=== PATIENT | female | born 1945 | race Caucasian/White ===

== ENCOUNTER → 2017-05-19 | Outpatient (CLI) | payer MEDICARE ==
[~2017-05-19] MED LIST: ASP81CT PO; ATRV10T PO; CALC-80; CHOL200014 PO; E400C; GBPN100C PO; LINA5TAB PO; LIRA0.6P3 SQ; LISI5TAB PO; MULT-608; NAPR250T34 PO; OMG1KC PO; PNT40TEC PO; PRX10T PO
--- NOTE | 2017-05-21 14:11 | Diagnostic Imaging Report ---
EXAMINATION: Bilateral screening mammogram 2D views with tomosynthesis. The current study was also evaluated with a Computer Aided Detection (CAD) system. INDICATION: Screening. PERSONAL HISTORY: No current complaints stated on the questionnaire. COMPARISON: 05/30/2015. FINDINGS: The breasts are composed of scattered fibroglandular densities. There are occasional benign appearing calcifications. Allowing for technique and positional differences, no suspicious change is seen. IMPRESSION: No significant change. ACR BI-RADS Category 2: Benign findings. Result letter will be mailed to the patient. Note: At least 10% of breast cancer is not imaged by mammography. Dictated by: Dictated on workstation # [id number]
== END ==
LOC: RAD 13:59
PROVIDERS: ATTEND Family Medicine
DX: Z12.31 Encounter for screening mammogram for malignant neoplasm of breast (principal)
CPT/HCPCS: 77067

== ENCOUNTER → 2018-05-25 | Outpatient (CLI) | payer MEDICARE ==
[~2018-05-25] MED LIST changes: -CHOL200014 PO; +CHOL200085 PO
--- NOTE | 2018-05-26 10:08 | Diagnostic Imaging Report ---
INDICATION: Routine screening. Comparison is made prior mammogram from 05/19/2017 and 05/30/2015. 2-D and 3-D bilateral screening mammography was performed with a Computer Aided Detection (CAD) system. FINDINGS: Scattered fibroglandular densities are identified bilaterally. The parenchymal pattern is stable. No mass or malignant appearing microcalcifications are seen. Axillae are unremarkable. IMPRESSION: No mammographic features suspicious for malignancy are identified. ACR BI-RADS Category 1: Negative. Result letter will be mailed to the patient. Note: At least 10% of breast cancer is not imaged by mammography. Dictated by: Dictated on workstation # [id number]
== END ==
LOC: RAD 14:14
PROVIDERS: ATTEND Nurse Practitioner Family
DX: Z12.31 Encounter for screening mammogram for malignant neoplasm of breast (principal)
CPT/HCPCS: 77067

== ENCOUNTER 2018-06-03 08:55 | Outpatient (RCR) | payer MEDICARE ==
[2018-05-29] MEDS: diphenhydrAMINE 50 MG/ML INJ (BENADRYL) IV SCH (14:39)
[2018-05-29] MEDS: ACETAMINOPHEN 325 MG TABLET PO SCH (14:39)
[2018-05-29 15:45] VITALS: BP 126/75
[2018-06-01 08:10] VITALS: BP 115/72
[2018-06-01] MEDS: diphenhydrAMINE 50 MG/ML INJ (BENADRYL) IV SCH (08:13)
[2018-06-01] MEDS: ACETAMINOPHEN 325 MG TABLET PO SCH (08:13)
[2018-06-01] MEDS: IRON SUCROSE 200 MG/10 ML (VENOFER) VIAL IV SCH (08:13)
[~2018-06-03] VITALS: Ht 160 cm; Wt 76.7 kg
[2018-06-03 08:55] VITALS: BP 128/73
[~2018-06-03 08:55] MED LIST changes: +IRON SUCROSE 200 MG/10 ML (VENOFER) VIAL IV NR; +IRON SUCROSE 200 MG/10 ML (VENOFER) VIAL IV SCH
[2018-06-03] MEDS: ACETAMINOPHEN 325 MG TABLET PO SCH (09:05)
[2018-06-03] MEDS: diphenhydrAMINE 50 MG/ML INJ (BENADRYL) IV SCH (09:08)
[2018-06-03] MEDS: IRON SUCROSE 200 MG/10 ML (VENOFER) VIAL IV SCH (09:27)
== END 2018-06-07 | disposition home or self-care (01) ==
LOC: SDC 08:55
PROVIDERS: ATTEND Family Medicine
DX: D50.9 Iron deficiency anemia, unspecified (principal)
CPT/HCPCS: 96365; 96374

== ENCOUNTER → 2019-05-31 | Outpatient (CLI) | payer MEDICARE ==
[~2019-05-31] MED LIST changes: +CHOL200014 PO; -CHOL200085 PO; -IRON SUCROSE 200 MG/10 ML (VENOFER) VIAL IV NR; -IRON SUCROSE 200 MG/10 ML (VENOFER) VIAL IV SCH
--- NOTE | 2019-05-31 12:39 | Diagnostic Imaging Report ---
INDICATION: Routine screening. Comparison is made with prior mammograms from 05/25/2018 and 05/19/2017. 2-D and 3-D bilateral screening mammography was performed. The current study was also evaluated with a Computer Aided Detection (CAD) system. 3-D tomosynthesis was also performed and reviewed. FINDINGS: Scattered fibroglandular densities are identified bilaterally. The parenchymal pattern is stable. No mass or malignant-appearing microcalcifications are seen. Axillae are unremarkable. IMPRESSION: No mammographic features suspicious for malignancy are identified. ACR BI-RADS Category 1: Negative. Result letter will be mailed to the patient. Note: At least 10% of breast cancer is not imaged by mammography. Dictated by: Dictated on workstation # [id number]
== END ==
LOC: RAD 09:38
PROVIDERS: ATTEND Nurse Practitioner Family
DX: Z12.31 Encounter for screening mammogram for malignant neoplasm of breast (principal)
CPT/HCPCS: 77067

== ENCOUNTER 2019-10-30 21:53 | Emergency (ER) | payer MEDICARE ==
[~2019-10-30] VITALS: Ht 163 cm; Wt 81.0 kg
--- NOTE | 2019-10-30 22:29 | ED Cough/URI ---
General Chief Complaint: Cough/Cold/Flu Symptoms Stated Complaint: SORE THROAT, CONGESTION, HEADACHE Nursing Triage Note: SORE THROAT X6 DAYS, RIGHT EYE REDNESS Sepsis Screen: No Definite Risk Source: patient Exam Limitations: no limitations History of Present Illness Date Seen by Provider: Oct 30, 2019 Time Seen by Provider: 22:10 Initial Comments The patient presents to ER by private conveyance from home with chief complaint that she has had some upper respiratory sinus congestion, sinus pressure and facial pain especially over her temporomandibular joints bilaterally for the past 6 days. She's also had a little subconjunctival hemorrhage on her right eye which is not infrequent. She has no history of trauma. No purulent discharge or fever. No chills body aches or cough. No history of lung disease. She does have some kidney disease and follows with Dr. Bertrand routinely. She had a recent checkup a few weeks prior to her bus trip last week when she got sick and at the primary care appointment everything seemed to be okay. She's had minor mattering in the morning when she wakes up from her right eye only but it does not cause any trouble throughout the day. She's had a sore throat and use Coricidin and Tylenol. Allergies and Home Medications Allergies Coded Allergies: No Known Drug Allergies (Unverified , 08/22/10) Home Medications Amoxicillin/Potassium Clav 1 Each Tablet, 1 EACH PO BID Prescribed by: YOLANDA TORREZ on 10/30/19 922 Aspirin 81 Mg Chew, 81 MG PO DAILY, (Reported) Atorvastatin Calcium 10 Mg Tablet, 10 MG PO DAILY, (Reported) Cholecalciferol (Vitamin D3) 2,000 Unit Tablet, 2,000 UNIT PO DAILY, (Reported) Liraglutide 0.6 Mg/0.1 Ml Pen.injctr, 0.6 MG SQ DAILY, (Reported) Paroxetine Hcl 10 Mg Tab, 10 MG PO DAILY, (Reported) Patient Home Medication List Home Medication List Reviewed: Yes Review of Systems Review of Systems Constitutional: No chills, No diaphoresis, No fever, No malaise, No weakness EENTM: see HPI, nose congestion, throat pain; No ear discharge, No hearing loss, No ear pain, No eye pain, No hoarseness, No nose pain Respiratory: No cough, No phlegm Cardiovascular: No chest pain, No palpitations Gastrointestinal: No abdominal pain, No nausea Genitourinary: No discharge, No dysuria Musculoskeletal: No back pain, No gout, No joint pain Skin: No pruritus, No rash Psychiatric/Neurological: Denies Headache, Denies Numbness, Denies Paresthesia Past Mbdklgw-Xfigpi-Smlfbs Hx Patient Social History Alcohol Use: Denies Use Recreational Drug Use: No Smoking Status: Never a Smoker 2nd Hand Smoke Exposure: No Recent Foreign Travel: No Contact w/Someone Who Travel: No Recent Infectious Disease Expo: No Recent Hopitalizations: No Physical Abuse: No Sexual Abuse: No Mistreated: No Fear: No Immunizations Up To Date Tetanus Booster (TDap): Unknown Date of Influenza Vaccine: Jun 09, 2012 Seasonal Allergies Seasonal Allergies: No Past Medical History Surgeries: Yes (OVARY REMOVED) Appendectomy, Gallbladder Respiratory: No Cardiac: Yes High Cholesterol, Hypertension 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 0.0oz. 76.003040ag; 30.00 BMI Method: General Appearance: WD/WN, no apparent distress Eyes: Bilateral Eye Normal Inspection, Bilateral Eye PERRL, Bilateral Eye EOMI HEENT: PERRL/EOMI, TMs normal, pharyngeal erythema (minor injection bilaterally without lesion, pustule etc.); No tonsillar exudate; other (frontal sinuses mildly tender to palpation but not the maxillary sinus.) Neck: full range of motion, supple, normal inspection Respiratory: lungs clear, normal breath sounds, no respiratory distress, no accessory muscle use Cardiovascular: normal peripheral pulses, regular rate, rhythm Extremities: normal inspection, normal capillary refill Neurologic/Psychiatric: alert, normal mood/affect Skin: normal color, warm/dry Progress/Results/Core Measures Suspected Sepsis Recent Fever Within 48 Hours: No Infection Criteria Present: None New/Unexplained Altered Menta: No Sepsis Screen: No Definite Risk SIRS Temperature: Pulse: 63 Respiratory Rate: 18 Blood Pressure 161 /71 Mean: 101 Results/Orders Lab Results Laboratory Tests Test 10/30/19 22:06 Range/Units Group A Streptococcus Screen NEGATIVE NEGATIVE Micro Results Microbiology 10/30/19 Influenza Types A,B Antigen (IRAM) - Final, Complete My Orders Orders - YOLANDA TORREZ Rapid Strep A Screen (10/30/19 21:55) Influenza A And B Antigens (10/30/19 21:55) Vital Signs/I&O 10/30/19 22:02 Temp 36.9 Pulse 63 Resp 18 B/P (MAP) 161/71 (101) Pulse Ox 99 O2 Delivery Room Air Capillary Refill : Less Than 3 Seconds Blood Pressure Mean: 101 Progress Note : Time: 22:27 Progress Note Frontal sinus pain, viral looking conjunctivae to so the right eye, sore throat. We'll get a flu swab and rapid strep. Would consider putting her on an antibioti c for a sinus infection since she's having facial pain, history of diabetes and it has been going on for a week. There is no purulent discharge or fever. Otherwise her vital signs are aseptic and appearance is benign. Viral is more likely the source of her symptoms. Departure Impression Primary Impression: Sinusitis, acute frontal Qualified Codes: J01.10 - Acute frontal sinusitis, unspecified Additional Impressions: Viral conjunctivitis, right eye Conjunctival hemorrhage of right eye Disposition: 01 HOME, SELF-CARE Condition: Stable Departure-Patient Inst. Decision time for Depature: 23:18 Referrals: OLEG BERTRAND MD (PCP/Family) Primary Care Physician Patient Instructions: Sinusitis, Adult (DC) Add. Discharge Instructions: Drink lots of fluids. Warm compresses for your eye mattering for pain. Claritin or Zyrtec 10 mg daily if you're having itching around the eyes. Augmentin 1 tablet twice a day with food for the next 10 days for sinus infection. All discharge instructions reviewed with patient and/or family. Voiced understanding. Scripts Amoxicillin/Potassium Clav (Augmentin 875-125 Tablet) 1 Each Tablet 1 EACH PO BID for 10 Days, #20 TAB 0 Refills Prov: YOLANDA TORREZ 10/30/19 YOLANDA TORREZ Oct 30, 2019 22:28
[2019-10-30] MEDS ORDERED: AMOX-358 PO ×2 (22:31→23:24)
[2019-10-30 23:22] VITALS: BP 161/71
== END 2019-10-30 23:21 | disposition home or self-care (01) ==
LOC: EDUNIT# 21:53 → ER 21:55
DX: J01.10 Acute frontal sinusitis, unspecified (principal); B30.9 Viral conjunctivitis, unspecified; H11.31 Conjunctival hemorrhage, right eye; I10 Essential (primary) hypertension; E11.9 Type 2 diabetes mellitus without complications; E78.00 Pure hypercholesterolemia, unspecified; Z79.82 Long term (current) use of aspirin
CPT/HCPCS: 87430; 87804

== ENCOUNTER → 2019-11-09 | Outpatient (CLI) | payer MEDICARE ==
[~2019-11-09] MED LIST changes: +AMOX-358 PO
--- NOTE | 2019-11-09 14:59 | Diagnostic Imaging Report ---
INDICATION: Screening for osteoporosis. COMPARISON: FINDINGS: The bone mineral density of the hips and spine was measured. The study was compared to the prior exam of 08/15/2011. The T score for the spine is -1.3. On the prior exam the T score is -1.6. The total T score for the left hip is -1.4 and for the right hip -1.7. On the prior exam the T-scores were -0.7 and -1.1. The T score for the left femoral neck is -2.1 and for the right femoral neck -2.2. On the prior exam the respective T-scores were -1.7 and -1.6. AP Spine L1-L4: [BMD (g/cm2): 1.041] [T-Score: -1.3] [Z-Score: 0.0] [BMD Previous: 1.006] [BMD % Change: 3.5] LT Hip Neck: [BMD (g/cm2): 0.741] [T-Score: -2.1] [Z-Score: -0.6] LT Hip Total: [BMD (g/cm2):0.837] [T-Score:-1.4] [Z-Score: -0.1] [BMD Previous: 0.918] [BMD % Change: -8.8] RT Hip Neck: [BMD (g/cm2):0.733] [T-Score:-2.2] [Z-Score:-0.7] RT Hip Total: [BMD (g/cm2):0.800] [T-score:-1.7] [Z-Score:-0.4] [BMD Previous:0.868] [BMD % Change:-7.8] *Indicates significant change from prior examination based on 95% confidence level. World Health Organization criteria for BMD interpretation classify patients as Normal (T-score at or above -1.0), Osteopenic (T-score between -1.0 and -2.5) or Osteoporotic (T-score at or below -2.5). LIMITATIONS AND MODIFICATION: None. FRACTURE RISK (FRAX SCORE): The ten year probability of (%): Major Osteoporotic Fracture: [20.6] Hip Fracture: [4.8] IMPRESSION: 1. There has been a slight increase in the bone mineral density of the spine. The T score value remains within the range of osteopenia. 2. Conversely, the bone mineral density of the hips and femoral necks has decreased since the prior exam. All the T scores now indicate osteopenia. 3. See below National Osteoporosis Foundation guidelines on when to potentially initiate pharmacologic therapy. Based on the National Osteoporosis Foundation Guidelines, pharmacologic treatment should be initiated in any of the following, unless clinical conditions suggest otherwise: * Any patient with prior fragility fracture of the hip or vertebrae. A spine fracture indicates 5X risk for subsequent spine fracture and 2X risk for subsequent hip fracture. * Osteoporosis (T-score <-2.5). * Postmenopausal women and men age 50 and older with low bone mass/osteopenia (T-score between -1.0 and -2.5) by DXA and 10-year major osteoporotic fracture greater than 20% or a 10-year probability of hip fracture greater than 3%. These fracture risks are supplied above in the FRAX score, if applicable. * Clinician judgement and/or patient preferences may indicate treatment for people with 10-year fracture probabilities above or below these levels. Dictated by: Dictated on workstation # [id number]
== END ==
LOC: RAD 13:51
PROVIDERS: ATTEND Family Medicine
DX: M85.80 Other specified disorders of bone density and structure, unspecified site (principal); N28.89 Other specified disorders of kidney and ureter; Z78.0 Asymptomatic menopausal state
CPT/HCPCS: 77080

== ENCOUNTER 2020-01-20 13:35 | Outpatient (RCR) | payer MEDICARE ==
[2020-01-20 14:02] LABS: ABSOLUTE RETIC # 54 10e9/L (24-90); BASOPHILS % (AUTO) 1 % (0-10); EOSINOPHILS # (AUTO) 0.2 10^3/uL (0.0-0.3); EOSINOPHILS % (AUTO) 3 % (0-10); HEMATOCRIT 44 % (35-52); HEMOGLOBIN 15.1 G/DL (11.5-16.0); LYMPHOCYTES # (AUTO) 1.3 X 10^3 (1.0-4.0); LYMPHOCYTES % (AUTO) 21 % (12-44); MEAN CORPUSCULAR HEMOGLOBIN 34 PG (25-34); MEAN CORPUSCULAR HGB CONC 34 G/DL (32-36); MEAN CORPUSCULAR VOLUME 99 FL (80-99); MEAN PLATELET VOLUME 10.2 FL (7.4-10.4); MONOCYTES # (AUTO) 0.3 X 10^3 (0.0-1.0); MONOCYTES % (AUTO) 5 % (0-12); NEUTROPHILS # (AUTO) 4.2 X 10^3 (1.8-7.8); NEUTROPHILS % (AUTO) 71 % (42-75); PLATELET COUNT 166 10^3/uL (130-400); RED CELL DISTRIBUTION WIDTH 13.4 % (10.0-14.5); RETICULOCYTE % 1.21 % (0.50-2.40)
[2020-01-20 14:27] LABS: ALBUMIN 4.1 GM/DL (3.2-4.5); BILIRUBIN,TOTAL 0.7 MG/DL (0.1-1.0); CALCIUM 8.8 MG/DL (8.5-10.1); CREATININE SERUM 1.17 MG/DL (0.60-1.30); POTASSIUM 3.7 MMOL/L (3.6-5.0); TOTAL PROTEIN 7.6 GM/DL (6.4-8.2)
== END 2020-04-19 | disposition home or self-care (01) ==
LOC: ONC 13:35
PROVIDERS: ATTEND Internal Medicine Hematology & Oncology
DX: D58.2 Other hemoglobinopathies (principal); E11.22 Type 2 diabetes mellitus with diabetic chronic kidney disease; N18.3 Chronic kidney disease, stage 3 (moderate); Z86.010 Personal history of colon polyps
CPT/HCPCS: 80053; 85025; 85045; G0463; 99214

== ENCOUNTER → 2020-06-01 | Outpatient (CLI) | payer MEDICARE ==
--- NOTE | 2020-06-01 17:16 | Diagnostic Imaging Report ---
Digital mammogram. Bilateral screening This study was compared to the prior exam of 05/31/2019, 05/25/2018 and 05/19/2017. At this time there are no current complaints. Findings: The breasts are predominantly fatty. Overall, there has been no significant change when compared to the prior study. There is no primary or secondary sign of malignancy noted. Impression: There is no evidence for malignancy. ACR BI-RADS Category 1: Negative. Result letter will be mailed to the patient. Note: At least 10% of breast cancer is not imaged by mammography. Dictated by: Dictated on workstation # [id number]
== END ==
LOC: RAD 11:15
PROVIDERS: ATTEND Nurse Practitioner Family
DX: Z12.31 Encounter for screening mammogram for malignant neoplasm of breast (principal)
CPT/HCPCS: 77063; 77067

== ENCOUNTER 2020-11-29 05:38 | Outpatient (CLI) | payer MEDICARE ==
[~2020-11-29] VITALS: Ht 160 cm; Wt 77.2 kg
[2020-11-29] MEDS ORDERED: CALC0.253 PO (13:30)
[2020-11-29] MEDS ORDERED: L.AC1CAP6 PO (13:30)
[2020-11-29] MEDS ORDERED: OMEP20TA33 PO (13:30)
[2020-11-29] MEDS ORDERED: ATOR10TA PO (13:30)
[2020-11-29] MEDS ORDERED: PARO10TA3 PO (13:30)
[2020-11-29] MEDS ORDERED: NF-VITD400 PO (13:30)
== END 2020-11-29 14:26 | disposition home or self-care (01) ==
LOC: PREOP 05:38
PROVIDERS: ATTEND Surgery
DX: Z01.818 Encounter for other preprocedural examination (principal)

== ENCOUNTER 2020-12-06 08:45 | Day surgery (SDC) | payer MEDICARE ==
[2020-12-06] VITALS (14 sets, daily range): BP systolic 83–123; BP diastolic 45–83
[~2020-12-06] VITALS: Ht 160 cm; Wt 77.2 kg
[~2020-12-06 08:45] MED LIST changes: +ATOR10TA PO; +CALC0.253 PO; +L.AC1CAP6 PO; +NF-VITD400 PO; +OMEP20TA33 PO; +PARO10TA3 PO
[2020-12-06] MEDS ORDERED: NS IV 500 ML 500 ML ONE (08:51)
[2020-12-06] MEDS ORDERED: MIDAZOLAM 5 MG/5 ML (VERSED) VIAL IV ONE (09:00)
[2020-12-06] MEDS ORDERED: LIDOCAINE JELLY 2% 6 ML SYRINGE MM PRN (09:00)
[2020-12-06] MEDS ORDERED: NS IV 500 ML 500 ML IV PRN (09:00)
[2020-12-06] MEDS ORDERED: fentaNYL INJ 100 MCG/2 ML AMP IVP ONE (09:00)
[2020-12-06] MEDS ORDERED: LIDOCAINE JELLY 2% 6 ML SYRINGE ONE (10:08)
[2020-12-06] MEDS ORDERED: fentaNYL INJ 100 MCG/2 ML AMP ONE (10:08)
[2020-12-06] MEDS ORDERED: MIDAZOLAM 5 MG/5 ML (VERSED) VIAL ONE ×2 (10:09)
--- NOTE | 2020-12-06 10:28 | Conscious Sedation/ASA ---
Conscious Sedation Pre-Proced Time 10:00 ASA Score 2 For ASA 3 and 4: Consider anesthesia and medical clearance. Also, for patients with a history of failed moderate sedation consider anesthesia. Airway Lungs Heart ASA score ASA 1: a normal healthy patient ASA 2: a patient with a mild systemic disease (mid diabetes, controlled hypertension, obesity ASA 3: a patient with a severe systemic disease that limits activity (angina, COPD, prior Myocardial infarction) ASA 4: a patient with an incapacitating disease that is a constant threat to life (CHF, renal failure) ASA 5: a moribund patient not expected to survive 24 hrs. (ruptured aneurysm) ASA 6: a declared brain- patient whose organs are being harvested. For emergent operations, add the letter E after the classification Mallampati Classification Grade 2 Sedation Plan Analgesia, Amnesia, Plan communicated to team members, Discussed options with patient/fam, Discussed risks with patient/fam The patient is an appropriate candidate to undergo the planned procedure, sedation, and anesthesia. The patient immediately re-assessed prior to indication. JERICHO MARSHALL MD Dec 06, 2020 10:28
--- NOTE | 2020-12-06 10:28 | Progress Note-Pre Operative ---
Pre-Operative Progress Note H&P Reviewed The H&P was reviewed, patient examined and no changes noted. Date Seen by Provider: Dec 06, 2020 Time Seen by Provider: 10:00 Date H&P Reviewed: Dec 06, 2020 Time H&P Reviewed: 10:00 Pre-Operative Diagnosis: family hx colon ca JERICHO MARSHALL MD Dec 06, 2020 10:28
--- NOTE | 2020-12-06 10:29 | Discharge Inst-Surgical ---
D/C Lap Instructions-ROLANDO Follow Up Appt in 2 weeks Activity as tolerated High Fiber Diet 25g or more per day Avoid Alcohol, Caffeine, Spicy Doland and Acid foods. Drink 64 fluid oz or more of fluids per day. Symptoms to Report: Fever over 101 degree F, Nausea/Vomiting If any problems/questions: Contact your physician or go to Emergency Room JERICHO MARSHALL MD Dec 06, 2020 10:29
[2020-12-06] MEDS ORDERED: HYDROcodone/APAP 5 MG/325 MG (LORTAB) TAB PO PRN (10:30)
[2020-12-06] MEDS ORDERED: ACETAMINOPHEN 325 MG TABLET PO PRN (10:30)
[2020-12-06] MEDS ORDERED: ONDANSETRON 4 MG/2 ML (SDV) Z0FRAN IVP PRN (10:30)
[2020-12-06] MEDS ORDERED: morphine INJ 10 MG/ML 1ML (SYR OR VIAL) IVP PRN ×2 (10:30)
--- NOTE | 2020-12-06 11:05 | Progress Note-Post Operative ---
Post-Operative Progess Note Surgeon (s)/Bumboater (s) Surgeon JERICHO MARSHALL MD Bumboater: none Pre-Operative Diagnosis family hx colon ca Post-Operative Diagnosis chronic stage 2 ext and int hemorrhoids, moderate sigmoid diverticulosis. Procedure & Operative Findings Date of Procedure 12/06/20 Procedure Performed/Findings colonoscopy Anesthesia Type cs Estimated Blood Loss Estimated blood loss (mL): minimal Specimens/Packing Specimens Removed none JERICHO MARSHALL MD Dec 06, 2020 11:05
--- NOTE | 2020-12-06 15:23 | OPERATIVE REPORT ---
DATE OF SERVICE: 12/06/2020 ATTENDING PRIMARY CARE PHYSICIAN: Dr. Anastasia Bertrand. PREOPERATIVE DIAGNOSIS: Screening colonoscopy with family history of colon cancer. POSTOPERATIVE DIAGNOSES: Chronic stage II external and internal hemorrhoids, mild to moderate sigmoid diverticulosis. PROCEDURE: Colonoscopy. SURGEON: Jericho Marshall MD. ANESTHESIA: Conscious sedation. ESTIMATED BLOOD LOSS: Minimal. FINDINGS: Chronic stage II external and internal hemorrhoids, mild to moderate sigmoid diverticulosis. DISPOSITION: The patient tolerated the procedure well. INDICATIONS: The patient is a 75-year-old female known to us. She is in need of a screening colonoscopy. She does have a family history of colon cancer with her mother being diagnosed with the disease at age 61. 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 Her last colonoscopy was in 2015 and no polyps were identified. She states for the most part she is doing well. She does not report any red blood per rectum nor any dark tarry stools. DESCRIPTION OF PROCEDURE: The patient was brought to the endoscopy suite, laid in the left lateral decubitus position. After adequate IV pain and sedative medications and conscious sedation anesthesia, a digital rectal examination was performed. Chronic stage II external and internal hemorrhoids were identified, which were not actively edematous nor inflamed and no bleeding. Normal sphincter tone was felt and there were no palpable masses. The endoscope was then intubated and anus and rectum gently insufflated. The endoscope was then advanced through the valves of Quan of the rectum with no polyps or any neoplasms identified. Through the sigmoid colon, a moderate sigmoid diverticulosis identified. There were no mucosal inflammatory changes to indicate any active diverticulitis. The endoscope was then advanced to the remainder of the descending, transverse and ascending colon to the cecum. These segments were normal. There were no polyps or any neoplasms identified. The endoscope was then slowly withdrawn while taking a second look and suctioning of residual air with no additional findings. The patient tolerated the procedure well. We will recommend continued medical management with a high fiber diet with at least 25 grams of fiber daily as well as significant amounts of water to promote soft stools on a daily basis. Due to her first-degree family history of colon cancer, we will recommend a followup colonoscopy in approximately 5 years. Job ID: [id number] DocumentID: [id number] Dictated Date: 12/06/2020 11:00:43 Truer Pinion And Wheel Date: 12/06/2020 15:22:44 Dictated By: JERICHO MARSHALL MD
== END 2020-12-06 11:37 | disposition home or self-care (01) ==
LOC: ENDO 08:45
PROVIDERS: ATTEND Surgery
DX: Z12.11 Encounter for screening for malignant neoplasm of colon (principal); K64.1 Second degree hemorrhoids; K57.30 Diverticulosis of large intestine without perforation or abscess without bleeding; F41.9 Anxiety disorder, unspecified; E78.5 Hyperlipidemia, unspecified; E11.51 Type 2 diabetes mellitus with diabetic peripheral angiopathy without gangrene; N18.30 Chronic kidney disease, stage 3 unspecified; D63.1 Anemia in chronic kidney disease; K21.00 Gastro-esophageal reflux disease with esophagitis, without bleeding; Z79.899 Other long term (current) drug therapy; Z80.0 Family history of malignant neoplasm of digestive organs
CPT/HCPCS: G0105

== ENCOUNTER 2021-02-25 14:26 | Emergency (ER) | payer MEDICARE ==
[~2021-02-25] VITALS: Ht 160 cm; Wt 77.0 kg
--- NOTE | 2021-02-25 14:49 | ED Upper Extremity ---
General Chief Complaint: Upper Extremity Stated Complaint: FELL AT HOME/ R SHOULDER PAIN Nursing Triage Note: PT TO ED W/ C/O RT SHOULDER PAIN ONSET AFTER HER SANDAL GOT CAUGHT ON HER STAIRS AT HOME CAUSING HER TO FALL ON THE LANDING OF HER STAIRS. PT DENIES TO THIS RN STRIKING HER HEAD, LOC BUT DOES C/O RT SHOULDER PAIN. STATES UNABLE TO MOVE HER ARM AT THIS TIME. Nursing Sepsis Screen: No Definite Risk Source: patient Exam Limitations: no limitations History of Present Illness Date Seen by Provider: Feb 25, 2021 Time Seen by Provider: 14:47 Initial Comments To ER by private vehicle with reports of pain to the right shoulder. She was walking up her stairs when the sandals that she was wearing caught the lip of one of the stairs causing her to trip and fall forward. She states that the right shoulder took the brunt of the force but she did strike the right side of her head. She has pain from the base of her neck on the right side down to the right shoulder. She also has some tenderness to palpation over the volar forearm on the right. Onset: just prior to arrival Severity: moderate Pain/Injury Location: right shoulder, right forearm Method of Injury: fell Modifying Factors: Worse With Movement Allergies and Home Medications Allergies Coded Allergies: No Known Drug Allergies (Unverified , 08/22/10) Home Medications Atorvastatin Calcium 10 Mg Tablet, 10 MG PO DAILY, (Reported) Calcitriol 0.25 Mcg Capsule, 0.25 MCG PO NEEDED, (Reported) LSimacidoph & ParacaseJessica paul.lactis 1 Each Capsule, 1 EACH PO DAILY, (Reported) Liraglutide 0.6 Mg/0.1 Ml Pen.injctr, 0.6 MG SQ DAILY, (Reported) Omeprazole Magnesium 20 Mg Tablet.dr, 20 MG PO DAILY, (Reported) Paroxetine HCl 10 Mg Tablet, 10 MG PO DAILY, (Reported) Vitamin D 10 Mcg Tablet, 400 MCG PO DAILY, (Reported) Patient Home Medication List Home Medication List Reviewed: Yes Review of Systems Constitutional: see HPI EENTM: see HPI Respiratory: no symptoms reported Cardiovascular: no symptoms reported Genitourinary: no symptoms reported Musculoskeletal: no symptoms reported Skin: no symptoms reported Psychiatric/Neurological: No Symptoms Reported Past Suwbwcq-Vokpkw-Jptawv Hx Patient Social History Alcohol Use: Occasionally Uses Number of Drinks Today: Alcohol Beverage of Choice: Wine Smoking Status: Never a Smoker 2nd Hand Smoke Exposure: No Recent Infectious Disease Expo: No Recent Hopitalizations: No Immunizations Up To Date Tetanus Booster (TDap): Unknown Date of Influenza Vaccine: Jun 30, 2020 Seasonal Allergies Seasonal Allergies: No Past Medical History Surgeries: Yes (OVARY REMOVED) Appendectomy, Gallbladder Respiratory: No Cardiac: Yes High Cholesterol, Hypertension 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 0.0oz. 76.374651do; 30.00 BMI Method: General Appearance: WD/WN, no apparent distress HEENT: PERRL/EOMI, normal ENT inspection Neck: non-tender, full range of motion Respiratory: no respiratory distress, no accessory muscle use Shoulder: normal inspection, non-tender Elbow/Forearm: Right Wrist: Yes normal inspection, Yes non-tender Hand: normal inspection, non-tender Neurologic/Psychiatric: alert, normal mood/affect, oriented x 3 Skin: normal color, warm/dry Progress/Results/Core Measures Results/Orders My Orders Orders - TRAVIS BONILLA APRN Shoulder, Right, 3 Views (02/25/21 14:44) Ct Head/Cervical Spine Wo (02/25/21 14:47) Forearm, Right, 2 Views (02/25/21 14:47) Hydrocodone/Apap 5/325 Tablet (Lortab 5 (02/25/21 15:00) Medications Given in ED Current Medications Medications Dose Ordered Sig/Rosy Route Start Time Stop Time Status Last Admin Dose Admin Acetaminophen/ Hydrocodone Bitart 1 ea ONCE ONCE PO 02/25/21 15:00 02/25/21 15:01 DC 02/25/21 15:09 1 EA Vital Signs/I&O 02/25/21 14:35 Temp 36.9 Pulse 76 Resp 18 B/P (MAP) 126/81 (96) Pulse Ox 98 O2 Delivery Room Air Blood Pressure Mean: 96 Diagnostic Imaging Diagonstic Imaging: Xray Comments NAME: WINSTON SHERIFF [facility] REC#: [id number] PT STATUS: REG ER : 1945 PHYSICIAN: TRAVIS BONILLA APRN ADMIT DATE: 02/25/21/ER Draft Date of Exam:02/25/21 SHOULDER, RIGHT, 3 VIEWS INDICATION: Pain after fall EXAMINATION: Right shoulder 02/25/2021 FINDINGS: 3 views of the shoulder There is a comminuted fracture of the proximal humerus which extends to the greater tuberosity. No dislocations. Acromioclavicular joint appears preserved. Visualized right lung is clear. IMPRESSION: 1. Comminuted right proximal humerus fracture. Dictated on workstation # [id number] Dict: 02/25/21 1454 Trans: 02/25/21 1500 CVB [id number] Interpreted by: CLAUDIA ARGUELLO MD Electronically signed by: Departure Impression Primary Impression: Humerus fracture Disposition: HOME, SELF-CARE Condition: Stable Departure-Patient Inst. Decision time for Depature: 15:14 Referrals: OLEG SUTHERLAND MD (PCP) Primary Care Physician ANDREWS DEMPSEY MD, MICHAEL P MD Patient Instructions: Acute Pain, Adult (DC) Add. Discharge Instructions: 1. Return to ER for any concerns 2. Follow-up with your doctor next week 3. Call orthopedics tomorrow to make an appointment to be seen. Return to ER for any worsening. All discharge instructions reviewed with patient and/or family. Voiced understanding. Scripts Hydrocodone/Acetaminophen (Hydrocodone-Acetamin 5-325 mg) 1 Each Tablet 1 TAB PO Q4H PRN for PAIN-MODERATE (5-7), #20 TAB Prov: TRAVIS BONILLA APRN 02/25/21 TRAVIS BONILLA APRN Feb 25, 2021 14:49
[2021-02-25] MEDS ORDERED: HYDROcodone/APAP 5 MG/325 MG (LORTAB) TAB PO ONE (15:00)
--- NOTE | 2021-02-25 15:00 | Diagnostic Imaging Report ---
INDICATION: Pain after fall EXAMINATION: Right shoulder 02/25/2021 FINDINGS: 3 views of the shoulder There is a comminuted fracture of the proximal humerus which extends to the greater tuberosity. No dislocations. Acromioclavicular joint appears preserved. Visualized right lung is clear. IMPRESSION: 1. Comminuted right proximal humerus fracture. Dictated by: Dictated on workstation # [id number]
--- NOTE | 2021-02-25 15:12 | Diagnostic Imaging Report ---
INDICATION: Pain after fall. EXAMINATION: Right forearm, 02/25/2021. FINDINGS: 2 views of the forearm. There is no evidence for an acute fracture or dislocation. The joint spaces are well maintained. There is no significant soft tissue swelling. IMPRESSION: No acute process. Dictated by: Dictated on workstation # [id number]
[2021-02-25] MEDS ORDERED: ACHD5005 PO (15:16)
--- NOTE | 2021-02-25 15:34 | Diagnostic Imaging Report ---
Clinical indication: Patient with arm pain after fall. Patient with neck pain. Exam: Head CT without IV contrast with sagittal and coronal reformations. Axial CT scan of the cervical spine with sagittal and coronal reformations. Auto Exposure Controls were utilized during the CT exam to meet ALARA standards for radiation dose reduction. Comparison: None. Findings: Head CT: There is no evidence of acute cerebral infarct, intracranial hemorrhage, or gross mass effect. There is diffuse brain parenchymal volume loss and mild chronic small vessel ischemic disease. There is normal lanza-white matter distinction. There is no significant midline shift or herniation. There is no evidence of hydrocephalus. The basal cisterns are unremarkable. The skull, extracranial soft tissue, and orbits are unremarkable. There is mild mucosal thickening involving the frontal sinus, ethmoid sinus, left maxillary sinus and sphenoid sinus. Temporal bones show no significant abnormality. Cervical spine CT: There is no acute cervical spine fracture or dislocation. There are degenerative spurs in the right subarticular region involving the C5-C6 level which causes moderate to severe right neural foramen narrowing. The neck tissue structures show no significant abnormality. Visualized upper lung siddiqui are clear. Impression: 1: There is no evidence of acute intracranial process. 2: There is no acute cervical spine fracture or dislocation. 3: There is mild paranasal sinus disease. Dictated by: Dictated on workstation # [id number]
[2021-02-25 15:38] VITALS: BP 0/0
== END 2021-02-25 15:38 | disposition home or self-care (01) ==
LOC: EDUNIT# 14:26 → ER 14:29
DX: S42.251A Displaced fracture of greater tuberosity of right humerus, initial encounter for closed fracture (principal); I10 Essential (primary) hypertension; E78.00 Pure hypercholesterolemia, unspecified; E11.9 Type 2 diabetes mellitus without complications; F41.9 Anxiety disorder, unspecified; Z79.899 Other long term (current) drug therapy; W10.9XXA Fall (on) (from) unspecified stairs and steps, initial encounter
CPT/HCPCS: 70450; 72125; 73030; 73090; 99283; A4565

== ENCOUNTER → 2021-06-04 | Outpatient (CLI) | payer MEDICARE ==
[~2021-06-04] MED LIST changes: +ACHD5005 PO
--- NOTE | 2021-06-04 12:11 | Diagnostic Imaging Report ---
Indication: Routine screening. Comparison is made with prior mammogram from 06/01/2020 and 05/31/2019. 2-D and 3-D bilateral screening mammography was performed with CAD. Scattered fibroglandular densities are identified bilaterally. The parenchymal pattern is stable. No mass or malignant appearing microcalcifications are seen. Axillae are unremarkable. IMPRESSION: BI-RADS Category 1 No mammographic features suspicious for malignancy are identified. ACR BI-RADS Category 1: Negative. Result letter will be mailed to the patient. Note: At least 10% of breast cancer is not imaged by mammography. Dictated by: Dictated on workstation # [id number]
== END ==
LOC: RAD 10:15
PROVIDERS: ATTEND Family Medicine
DX: Z12.31 Encounter for screening mammogram for malignant neoplasm of breast (principal)
CPT/HCPCS: 77063; 77067

== ENCOUNTER → 2021-11-13 | Outpatient (CLI) | payer MEDICARE ==
--- NOTE | 2021-11-13 15:26 | Diagnostic Imaging Report ---
INDICATION: 76-year-old asymptomatic postmenopausal female COMPARISON: 11/09/2019 FINDINGS: AP Spine L1-L4: [BMD (g/cm2): 1.062] [T-Score: -1.2] [Z-Score: 0.5] [BMD Previous: 1.041] [BMD % Change: 2.0] LT Hip Neck: [BMD (g/cm2): 0.749] [T-Score: -2.1] [Z-Score: -0.3] LT Hip Total: [BMD (g/cm2):0.813] [T-Score:-1.5] [Z-Score: 0.1] [BMD Previous: 0.837] [BMD % Change: -2.9] RT Hip Neck: [BMD (g/cm2):0.739] [T-Score:-2.1] [Z-Score:-0.3] RT Hip Total: [BMD (g/cm2):0.783] [T-score:-1.8] [Z-Score:-0.2] [BMD Previous:0.800] [BMD % Change:-2.1] *Indicates significant change from prior examination based on 95% confidence level. World Health Organization criteria for BMD interpretation classify patients as Normal (T-score at or above -1.0), Osteopenic (T-score between -1.0 and -2.5) or Osteoporotic (T-score at or below -2.5). LIMITATIONS AND MODIFICATION: None. FRACTURE RISK (FRAX SCORE): The ten year probability of (%): Major Osteoporotic Fracture: [21.3] Hip Fracture: [5.4] IMPRESSION: 1. Osteopenia (Low bone mass). 2. No significant change in bone mineral density since prior examination. 3. See below National Osteoporosis Foundation guidelines on when to potentially initiate pharmacologic therapy. Based on the National Osteoporosis Foundation Guidelines, pharmacologic treatment should be initiated in any of the following, unless clinical conditions suggest otherwise: * Any patient with prior fragility fracture of the hip or vertebrae. A spine fracture indicates 5X risk for subsequent spine fracture and 2X risk for subsequent hip fracture. * Osteoporosis (T-score <-2.5). * Postmenopausal women and men age 50 and older with low bone mass/osteopenia (T-score between -1.0 and -2.5) by DXA and 10-year major osteoporotic fracture greater than 20% or a 10-year probability of hip fracture greater than 3%. These fracture risks are supplied above in the FRAX score, if applicable. * Clinician judgement and/or patient preferences may indicate treatment for people with 10-year fracture probabilities above or below these levels. Dictated by: Dictated on workstation # [id number]
== END ==
LOC: RAD 12:30
PROVIDERS: ATTEND Nurse Practitioner Family
DX: M85.80 Other specified disorders of bone density and structure, unspecified site (principal); Z78.0 Asymptomatic menopausal state
CPT/HCPCS: 77080

== ENCOUNTER → 2022-06-05 | Outpatient (CLI) | payer MEDICARE ==
--- NOTE | 2022-06-05 15:12 | Diagnostic Imaging Report ---
INDICATION: Routine screening Comparison is made with prior mammogram from 06/04/2021 and 06/01/2020. 2-D and 3-D bilateral screening mammography was performed with CAD. Scattered fibroglandular densities are identified bilaterally. The parenchymal pattern is stable. No mass or malignant-appearing microcalcifications are seen. Axillae is unremarkable. IMPRESSION: No mammographic features suspicious for malignancy are identified. ACR BI-RADS Category 1: Negative. Result letter will be mailed to the patient. Note: At least 10% of breast cancer is not imaged by mammography. BI-RADS Category 1 Dictated by: Dictated on workstation # [id number]
== END ==
LOC: RAD 10:04
PROVIDERS: ATTEND Family Medicine
DX: Z12.31 Encounter for screening mammogram for malignant neoplasm of breast (principal)
CPT/HCPCS: 77063; 77067

== ENCOUNTER → 2023-06-11 | Outpatient (CLI) | payer MEDICARE ==
--- NOTE | 2023-06-12 11:55 | Diagnostic Imaging Report ---
INDICATION: Routine screening Comparison is made with prior mammogram from 06/05/2022 and 06/04/2021. 2-D and 3-D bilateral screening mammography was performed with CAD. Scattered fibroglandular densities are identified bilaterally. The parenchymal pattern is stable. No mass or malignant-appearing microcalcifications are seen. Axillae are unremarkable. IMPRESSION: No mammographic features suspicious for malignancy are identified. ACR BI-RADS Category 1: Negative. Result letter will be mailed to the patient. Note: At least 10% of breast cancer is not imaged by mammography. BI-RADS Category 1 Dictated by: Dictated on workstation # [id number]
== END ==
LOC: RAD 14:45
PROVIDERS: ATTEND Family Medicine
DX: Z12.31 Encounter for screening mammogram for malignant neoplasm of breast (principal)
CPT/HCPCS: 77063; 77067